=== PATIENT | female | born 1955 | race Caucasian/White ===

== ENCOUNTER 2020-09-23 11:11 | Emergency (ER) | payer MEDICARE, OTHER, SELFPAY ==
[2020-09-23 11:16] VITALS: BP 159/85; PULSE 86; RESP 18; TEMP 36.8; O2SAT 97; BMI 20.9
--- NOTE | 2020-09-23 11:25 | XR_ITS ---
WS: [id number] Exam: XR chest 1V portable [id number] Date/Time of Exam: 09/23/2020 11:30 AM Reason For Exam: CP No priors. The lungs are fully inflated and clear. Normal cardiomediastinal structures and regional bony element s. A permanent cardiac pacer superimposes the left chest. XR/XR chest 1V portable [id number] IMPRESSION: 1. No acute cardiopulmonary finding.
--- NOTE | 2020-09-23 11:25 | ECG_ITS ---
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 Measurements Intervals [place] Rate: 88 P: 71 MD: 166 QRS: 139 QRSD: 168 T: 96 QT: 414 QTc: 502 Interpretive Statements ELECTRONIC VENTRICULAR PACEMAKER ABNORMAL RHYTHM ECG No previous ECG available for comparison Electronically Signed On 09-23-2020 17:28:55 CDT by Shobha Stover M.D. [id number]
--- NOTE | 2020-09-23 11:26 | ED_ITS ---
HPI - Chest Pain General: Chief Complaint: Chest Pain Stated Complaint: CHEST PAIN Time Seen by Provider: 09/23/20 11:15 Source: patient Mode of arrival: ambulatory Limitations: no limitations History of Present Illness: HPI narrative: The patient is a 65-year-old female with a history of congestive heart failure and has a pacemaker defibrillator. No prior history of myocardial infarction. She presents emergency department with complaints of chest pain. Chest pain started intermittently yesterday and today while she was watering her garden the intensity of the pain worsened. She had some dizziness, but no nausea or vomiting. Pain is retrosternal and is referred to her right shoulder. She has not taken any medication for the pain. MD complaint: chest pain Onset (ago): day(s) (1) Timing of current episode: episodic and constant (but now constant) Prior episodes: Yes Onset: during exertion Pain location: substernal Pain radiation: right shoulder Severity: severe Quality: heaviness Relieving factors: nothing Exacerbating factors: exertion Associated symptoms: Reports dyspnea; Deny abdominal pain, diaphoresis, fever(s), leg edema, nausea, palpitations, sense of impending doom, syncope or vomiting Treatment prior to arrival: none Review of Systems General: Reports: 10 or more systems reviewed and unremarkable except in HPI and below Const: Denies: fever(s) or diaphoresis Card: Denies: palpitations or syncope Resp: Reports: dyspnea GI: Denies: abdominal pain, nausea or vomiting [facility] ED PFSH: Medical History (Reviewed 09/23/20 @ 11:31 by Juan Muller MD, [facility] [place]) History of breast cancer in adulthood Double mastectomy - 1989 Hyperparathyroidism Pacemaker Surgical History (Reviewed 09/23/20 @ 11:31 by Juan Muller MD, [facility] [place]) H/O cataract extraction Both eyes H/O: hysterectomy History of appendectomy History of breast reconstruction History of cholecystectomy History of implantable cardiac defibrillator (ICD) History of mastectomy, total History of tonsillectomy and adenoidectomy Family History (Reviewed 09/23/20 @ 11:31 by Juan Muller MD, [facility] [place]) Father CAD (coronary artery disease) Mother Alzheimer disease Sister Cancer Social History (Reviewed 09/23/20 @ 11:31 by Juan Muller MD, [facility] [place]) Smoking and tobacco status: former smoker Alcohol intake: current Alcohol intake frequency: few times a month Alcohol type: wine Physical Exam Const: COMMON NORMALS: no acute distress, average body habitus, patient oriented x3, no limitations, healthy appearing, alert and well nourished HENMT: COMMON NORMALS: normocephalic, atraumatic and moist oral mucous membranes HEAD & SCALP: normocephalic and atraumatic Neck/C-Spine: COMMON NORMALS: no meningeal signs and no JVD Chest: COMMONS NORMALS: normal inspection of the chest and normal palpation of entire chest wall Resp: COMMON NORMALS: normal respiratory effort, No retractions, No use of accessory muscles, clear to auscultation bilaterally and percussion normal AUSCULTATION: clear to auscultation bilaterally PERCUSSION: percussion normal Cardio: COMMON NORMALS: no JVD, regular rate, regular rhythm, S1 normal heart sound present, S2 normal heart sound present, No gallops present (Cardio), No clicks present (Cardio), No murmurs present (Cardio), No rub (Cardio) and Peripheral pulses 2+ throughout RATE: regular rate RHYTHM: regular rhythm HEART SOUNDS: S1 normal heart sound present and S2 normal heart sound present PERIPHERAL PULSES: Peripheral pulses 2+ throughout GI: COMMON NORMALS: Normal to inspection, nondistended, normoactive bowel sounds present, Soft to palpation, non-tender, No hepatosplenomegaly present, no masses and no bruits PALPATION: Yes Soft to palpation and Yes No hepatosplenomegaly present Extremity: COMMON NORMALS: normal to inspection, full ROM, capillary refill normal, no calf tenderness and no pedal edema Neuro: COMMON NORMALS: patient oriented x3 SENSORIUM/ORIENTATION: Yes alert MENINGEAL SIGNS: Yes no meningeal signs Course Reevaluation(s): Reevaluation #1: Discussed her lab and imaging findings with her. Negative for acute findings. Advised that her chest pain is unlikely to be cardiac in origin. I will therefore discharge her home. She voiced understanding and is in agreement with the plan Time: 14:00 Vital Signs: Vital signs: Vital Signs Temperature 98.2 F 09/23/20 11:16 Pulse Rate 65 09/23/20 14:08 Respiratory Rate 20 H 09/23/20 14:08 Blood Pressure 121/71 09/23/20 14:08 Pulse Oximetry 98 09/23/20 14:08 MDM - Chest Pain MDM Narrative: Medical decision making narrative: 65-year-old female patient who presented to the emergency department with chest pain. Evaluation in the emergency department was unremarkable and she is discharged home with no new orders. Lab Data: Labs: Lab Results 09/23/20 09/23/20 09/23/20 Range/Units 11:35 11:35 11:35 WBC 8.2 (4.0-10.0) 10^3/ uL RBC 5.49 H (4.1-5.3) 10^6/u L Hgb 16.5 H (11.5-15.3) g/dL Hct 49.9 H (37.0-47.0) % MCV 90.9 (81-99) fL MCH 30.1 (28.0-34.0) pg MCHC 33.1 (30.0-36.0) g/dL RDW 12.9 (12.1-15.1) % Plt Count 245 (130-400) 10^3/c mm MPV 9.4 (7.4-10.4) fL Neut % (Auto) 67.3 % Lymph % (Auto) 19.3 % [place] % (Auto) 11.9 % Eos % (Auto) 0.4 % Baso % (Auto) 0.7 % Neut # (Auto) 5.49 (1.8-7.7) 10^3/u L Lymph # (Auto) 1.6 (0.8-4.8) 10^3/u L [place] # (Auto) 1.0 H (0.2-0.9) 10^3/u L Eos # (Auto) 0.0 (0.0-0.8) 10^3/u L Baso # (Auto) 0.1 (0.0-0.1) 10^3/u L Nucleated RBC % (a uto) 0 % Nucleated RBCs # 0.0 /100WBC Sodium 137 (136-145) mmol/L Potassium 4.1 (3.5-5.1) mmol/L Chloride 101 (98-107) mmol/L Carbon Dioxide 22 (22-29) mmol/L Anion Gap 18.1 (5-19) BUN 25 H (8-23) mg/dL Creatinine 0.8 (0.5-0.9) mg/dL GFR Calculation 71.8 L (90-130) mL/min Glucose 93 (65-115) mg/dL Calculated Osmolal ity 288 (285-295) mOsm/k g Calcium 10.8 H (8.5-10.5) mg/dL Total Bilirubin 0.2 (0.15-1.2) mg/dL AST 22 (0-32) U/L ALT 21 (0-33) U/L Alkaline Phosphata se 93 (35-105) IU/L Troponin T Baselin e 10 (0-10) ng/L Troponin T 120 [place] (0-10) ng/L Delta Troponin T (0-10) ABS# NT-Pro-B Natriuret Pep 224 H (0-125) pg/mL Total Protein 7.0 (6.6-8.7) g/dL Albumin 4.8 (3.5-5.2) g/dL Globulin 2.2 (1.3-4.6) g/dL Lipase 40 (13-60) U/L 09/23/20 Range/Units 13:20 WBC (4.0-10.0) 10^3/ uL RBC (4.1-5.3) 10^6/u L Hgb (11.5-15.3) g/dL Hct (37.0-47.0) % MCV (81-99) fL MCH (28.0-34.0) pg MCHC (30.0-36.0) g/dL RDW (12.1-15.1) % Plt Count (130-400) 10^3/c mm MPV (7.4-10.4) fL Neut % (Auto) % Lymph % (Auto) % [place] % (Auto) % Eos % (Auto) % Baso % (Auto) % Neut # (Auto) (1.8-7.7) 10^3/u L Lymph # (Auto) (0.8-4.8) 10^3/u L [place] # (Auto) (0.2-0.9) 10^3/u L Eos # (Auto) (0.0-0.8) 10^3/u L Baso # (Auto) (0.0-0.1) 10^3/u L Nucleated RBC % (a uto) % Nucleated RBCs # /100WBC Sodium (136-145) mmol/L Potassium (3.5-5.1) mmol/L Chloride (98-107) mmol/L Carbon Dioxide (22-29) mmol/L Anion Gap (5-19) BUN (8-23) mg/dL Creatinine (0.5-0.9) mg/dL GFR Calculation (90-130) mL/min Glucose (65-115) mg/dL Calculated Osmolal ity (285-295) mOsm/k g Calcium (8.5-10.5) mg/dL Total Bilirubin (0.15-1.2) mg/dL AST (0-32) U/L ALT (0-33) U/L Alkaline Phosphata se (35-105) IU/L Troponin T Baselin e (0-10) ng/L Troponin T 120 [place] 8.16 (0-10) ng/L Delta Troponin T -1.84 L (0-10) ABS# NT-Pro-B Natriuret Pep (0-125) pg/mL Total Protein (6.6-8.7) g/dL Albumin (3.5-5.2) g/dL Globulin (1.3-4.6) g/dL Lipase (13-60) U/L Imaging Data^: CXR: Attestation: I personally reviewed and interpreted this imaging study as follows: Radiologist's impression: [address] [id number] ReportSigned Patient: Micha Bolden #: [id number]: 1955cct#:[id number]/Sex: 65 / FADM Date: 09/23/20Loc: ERRoom/Bed:Attending Dr: Ordering Provider/Ordering MD: Juan Muller MD, [facility] [place] Date of Service: 09/23/20 Procedure(s): XR chest 1V portable [id number] Accession Number(s): [id number] Report Number: [id number] WS: [id number] Exam: XR chest 1V portable [id number] Date/Time of Exam: 09/23/2020 11:30 AM Reason For Exam: CP No priors. The lungs are fully inflated and clear. Normal cardiomediastinal structures and regional bony elements. A permanent cardiac pacer superimposes the left chest. XR/XR chest 1V portable [id number] IMPRESSION: 1. No acute cardiopulmonary finding. Dictated By:Donald Khan, JOSEigned By:Donald Khan, DOSigned Date/Time:09/23/20 1229DD/ 1228 EKG Data^: EKG 1: Attestation: I personally reviewed and interpreted this EKG as follows: EKG interpretation date: 09/23/20 EKG interpretation time: 11:18 Prior EKG tracings: not available for review Interpretation: Electronic ventricular pacemaker rhythm. Heart rate [address] changes. EKG 2: Attestation: I personally reviewed and interpreted this EKG as follows: EKG interpretation date: 09/23/20 EKG interpretation time: 13:40 Prior EKG tracings: available for review Interpretation: Electronic pacemaker. Heart rate [address] changes. Discharge Plan Discharge Patient Disposition: Home Clinical Impression: Chest pain Qualifiers: Chest pain type: unspecified Qualified Code(s): R07.9 - Chest pain, unspecified Condition: Stable Prescriptions: Continued PRIORITY ONE THYROID SUPPLEMENT 1 tab PO DAILY RF: 0 Atomidine See Rx Instructions .ROUTE .COMPLEX RF: 0 Vitamin C 500 mg Tablet See Rx Instructions .ROUTE .COMPLEX RF: 0 vitamin B complex Tablet 1 tab PO BID RF: 0 Digestive Supplement 1 tab PO .WITH EACH MEAL RF: 0 Fish Oil 1 tsp PO PRN RF: 0 Probiotic 1 cap PO PRN RF: 0 biotin 1 cap PO DAILY RF: 0 boron 1 tab PO DAILY RF: 0 oregano oil 1 cap PO DAILY RF: 0 vitamin E 1 cap PO DAILY RF: 0 Discharge Orders: Discharge ED (Routine); Ordered 09/23/20 Ordered By: Juan Muller Discharge Diet: Usual diet Discharge Activity: Increase activity as tolerated Patient Instructions: Chest Pain (ED) Activity Restrictions/Additional Instructions: Return for any new or worsening symptoms. Follow-up with your primary care provider within 3 days. Continue home medications. Coding Level of Care Code ED Scallop Cutter Machine for Chg Fwd Exam Comprehensive
[2020-09-23] MEDS: aspirin 81 mg Chew Tablet 324 MG PO (11:41)
[2020-09-23] MEDS: nitroglycerin 0.4 mg sublingual Tablet SUBLINGUAL (11:42)
[2020-09-23 11:44] VITALS: BP 145/86; PULSE 84; RESP 20; O2SAT 97
[2020-09-23 11:48] LABS: Basophils # 0.1 10^3/uL (0.0-0.1); Basophils % 0.7 %; Eosinophils % 0.4 %; Hematocrit 49.9 % (37.0-47.0); Hemoglobin 16.5 g/dL (11.5-15.3); Lymphocytes # 1.6 10^3/uL (0.8-4.8); Lymphocytes % 19.3 %; Mean Corpuscular HGB Conc 33.1 g/dL (30.0-36.0); Mean Corpuscular Hemoglobin 30.1 pg (28.0-34.0); Mean Corpuscular Volume 90.9 fL (81-99); Mean Platelet Volume 9.4 fL (7.4-10.4); Monocytes % 11.9 %; Neutrophils # 5.49 10^3/uL (1.8-7.7); Neutrophils % 67.3 %; Nucleated Red Blood Cells % 0 %; Platelet Count 245 10^3/cmm (130-400); Red Blood Count 5.49 10^6/uL (4.1-5.3); Red Cell Distribution Width 12.9 % (12.1-15.1); White Blood Count 8.2 10^3/uL (4.0-10.0)
[2020-09-23 12:03] LABS: Troponin(5th) Baseline 10 ng/L (0-10)
[2020-09-23 12:11] LABS: Alanine Aminotransferase 21 U/L (0-33); Albumin Level 4.8 g/dL (3.5-5.2); Alkaline Phosphatase 93 IU/L (35-105); Anion Gap 18.1 (5-19); Aspartate Amino Transferase 22 U/L (0-32); Blood Urea Nitrogen 25 mg/dL (8-23); Calcium 10.8 mg/dL (8.5-10.5); Carbon Dioxide 22 mmol/L (22-29); Chloride 101 mmol/L (98-107); Globulin 2.2 g/dL (1.3-4.6); Glomerular Filtration Rate 71.8 mL/min (90-130); Glucose 93 mg/dL (65-115); Lipase 40 U/L (13-60); NT Pro B Type Natriuretic Pept 224 pg/mL (0-125); Osmolality Calculated 288 mOsm/kg (285-295); Potassium 4.1 mmol/L (3.5-5.1); Sodium 137 mmol/L (136-145); Total Bilirubin 0.2 mg/dL (0.15-1.2)
[2020-09-23] MEDS: sodium chloride 0.9% 500 ML IV (12:25)
[2020-09-23 12:27] VITALS: BP 113/82; PULSE 69; RESP 14; O2SAT 96
[2020-09-23 13:01] VITALS: BP 104/68; PULSE 71; RESP 21; O2SAT 98
--- NOTE | 2020-09-23 13:25 | ECG_ITS ---
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 Measurements Intervals [place] Rate: 65 P: 116 TX: 153 QRS: 168 QRSD: 169 T: 86 QT: 444 QTc: 463 Interpretive Statements ELECTRONIC ATRIAL PACEMAKER ELECTRONIC VENTRICULAR PACEMAKER ABNORMAL RHYTHM ECG Compared to ECG 09/23/2020 11:18:34 No significant changes Electronically Signed On 09-23-2020 17:44:04 CDT by Shobha Stover M.D. [id number] f
[2020-09-23 13:53] LABS: Troponin 5 2HR 8.16 ng/L (0-10)
[2020-09-23 13:54] LABS: Troponin 5 2HR Delta -1.84 ABS# (0-10)
[2020-09-23 14:08] VITALS: BP 121/71; PULSE 65; RESP 20; O2SAT 98
== END 2020-09-23 14:09 | disposition home or self-care (01) ==
PROVIDERS: Emergency Provider Family Medicine
DX: R07.9 Chest pain, unspecified (principal); Z85.3 Personal history of malignant neoplasm of breast; Z95.0 Presence of cardiac pacemaker; Z87.891 Personal history of nicotine dependence
CPT/HCPCS: 71045; 80053; 83690; 83880; 84484; 85025; 93005; 96360; 99284; J7040

== ENCOUNTER → 2020-09-30 13:07 | Outpatient (BNVA) | payer MEDICARE, OTHER, SELFPAY | PROVIDERS: Visit Provider Family Medicine | DX: E21.3 Hyperparathyroidism, unspecified (principal); Z95.0 Presence of cardiac pacemaker | CPT/HCPCS: 82310; 83970 ==

== ENCOUNTER 2021-01-22 09:43 | Outpatient (CLI) | payer MEDICARE, OTHER, SELFPAY ==
--- NOTE | 2021-01-22 09:30 | USCV_ITS ---
Eugene Bolden Age: 65 Gender: F : 1955 Exam Date: 01/22/2021 09:56 Ordering Phys: Shobha Stover MD ([email or web address]) Technologist: Eleanor Contreras Exam Location: [facility] [place] Indication: PACER/DEFIB HEART FAILURE BP: / HR: 68 Rhythm: Sinus Technical Quality: Adequate MEASUREMENTS (Male / Female) Normal Values 2D ECHO LV Diastolic Diameter PLAX 4.3 cm 4.2 - 5.9 / 3.9 - 5.3 cm LV Systolic Diameter PLAX 2.8 cm IVS Diastolic Thickness 0.8 cm 0.6 - 1.0 / 0.6 - 0.9 cm IVS Systolic Thickness 1.4 cm LVPW Diastolic Thickness 1.3 cm 0.6 - 1.0 / 0.6 - 0.9 cm LVPW Systolic Thickness 1.7 cm LVOT Diameter 2.1 cm LV Ejection Fraction 2D Teich 66.6 % LV Ejection Fraction MOD 2C 65.8 % LV Ejection Fraction 2C AL 66.4 % LA Diameter 3.1 cm LA Width 2.5 cm LA Height 4.0 cm RA Width 4.2 cm RA Height 3.7 cm Aorta at Sinotubular Diameter 2.9 cm M-MODE LV Diastolic Diameter MM 4.7 cm 4.2 - 5.9 / 3.9 - 5.3 cm LV Systolic Diameter MM 2.8 cm LV Ejection Fraction MM Teich 71.4 % IVS Diastolic Thickness MM 0.8 cm 0.6 - 1.0 / 0.6 - 0.9 cm IVS Systolic Thickness MM 1.5 cm LVPW Diastolic Thickness MM 0.9 cm 0.6 - 1.0 / 0.6 - 0.9 cm LVPW Systolic Thickness MM 1.5 cm RV Diastolic Diameter MM 2.5 cm Aortic Annulus Diameter 3.3 cm LA Ao Ratio MM 1.1 MV E Point Septal Separation 0.6 cm DOPPLER AV Peak Velocity 141.0 cm/s LVOT Peak Velocity 70.0 cm/s AV Area Cont Eq vti 1.9 cm squared AV Area Cont Eq pk 1.7 cm squared MV Area PHT 3.9 cm squared Mitral E to A Ratio 0.8 MV E' Velocity 36.5 cm/s Mitral E to MV E' Ratio 10.5 Mitral E to LV E' Lateral Ratio 11.6 Mitral E to LV E' Septal Ratio 9.8 TR Peak Velocity 195.9 cm/s TR Peak Gradient 15.3 mmHg TR Mean Velocity 186.6 cm/s TR Mean Gradient 15.4 mmHg TR Velocity Time Integral 89.9 cm TV Peak E Velocity 94.0 cm/s Right Atrial Pressure 3.0 mmHg Pulmonary Artery Systolic Pressu 18.3 mmHg PV Peak Velocity 68.0 cm/s RV Acceleration Time 0.1 s RV Ejection Time 0.3 s RV AcT/ET 0.5 FINDINGS Left Ventricle Normal left ventricular cavity size, wall thickness and systolic function. Left ventricular ejection fraction is estimated at 55 %. No regional wall motion abnormalities. Grade I diastolic dysfunction (abnormal relaxation filling pattern), normal to mildly elevated filling pressures. Right Ventricle Normal right ventricular size and systolic function. Right ventricular systolic pressure 29 mmHg. Defibrillator/pacemaker wire visualized in the right ventricle. Right Atrium Normal right atrial size. Aneurysmal interatrial septum. No ASD or PFO by color Doppler evaluation. Pacemaker wire in the right atrial cavity. Left Atrium Mildly increased left atrial size. Mitral Valve Mildly thickened mitral valve. No mitral valve stenosis. Trace mitral valve regurgitation. Aortic Valve Aortic valve not well visualized. No aortic valve stenosis. No aortic valve regurgitation. Tricuspid Valve Structurally normal tricuspid valve. Trace to mild tricuspid valve regurgitation. Pulmonic Valve Pulmonic valve not well visualized. Trace pulmonary valve regurgitation. Pericardium No pericardial effusion. Aorta Normal-sized aortic root. Normal-sized inferior vena cava with normal respiratory variation. CONCLUSIONS 1. Normal left ventricular cavity size, wall thickness and systolic function. Left ventricular ejection fraction is estimated at 55 %. No regional wall motion abnormalities. Grade I diastolic dysfunction (abnormal relaxation filling pattern), normal to mildly elevated filling pressures. 2. Normal right ventricular size and systolic function. 3. Pulmonary artery pressure estimated at 29 mmHg. 4. Aneurysmal interatrial septum. No ASD or PFO by color Doppler evaluation. 5. Trace to mild tricuspid valve regurgitation. 6. No prior similar studies to compare. Shobha Stover MD (Electronically Signed) Final Date: 27 January 2021 17:38 S
== END 2021-01-22 09:44 | disposition home or self-care (01) ==
LOC: US 09:44
PROVIDERS: PCP Family Medicine; Visit Provider Internal Medicine Cardiovascular Disease
DX: I50.9 Heart failure, unspecified (principal); Z95.0 Presence of cardiac pacemaker; I07.1 Rheumatic tricuspid insufficiency
CPT/HCPCS: 93306

== ENCOUNTER → 2021-12-18 10:31 | Outpatient (BNVA) | payer MEDICARE, OTHER, SELFPAY | PROVIDERS: PCP Family Medicine; Visit Provider Internal Medicine Cardiovascular Disease | DX: Z45.02 Encounter for adjustment and management of automatic implantable cardiac defibrillator (principal) | CPT/HCPCS: 93284 ==

== ENCOUNTER → 2022-01-19 14:54 | Outpatient (BNVA) | payer MEDICARE, OTHER, SELFPAY | PROVIDERS: PCP Family Medicine; Visit Provider Internal Medicine Cardiovascular Disease | DX: I42.0 Dilated cardiomyopathy (principal); I50.9 Heart failure, unspecified; Z95.810 Presence of automatic (implantable) cardiac defibrillator; I25.10 Atherosclerotic heart disease of native coronary artery without angina pectoris; I47.2 Ventricular tachycardia; E04.2 Nontoxic multinodular goiter; E21.3 Hyperparathyroidism, unspecified; Z87.891 Personal history of nicotine dependence | CPT/HCPCS: 99214 ==